=== PATIENT | male | born 1965 | race Two or more races ===

== ENCOUNTER 2025-01-01 15:42 | Inpatient (IN) | payer OTHER ==
[~2025-01-01] VITALS: Ht 172.7 cm; Wt 74.8 kg
[2025-01-01] MEDS ORDERED: FAMOTIDINE 20 MG/2 ML VIAL IV ONE (16:03)
[2025-01-01] MEDS: ONDANSETRON HCL INJ 2MG/ML 2ML 2 MG/ML VIAL IV ONE (16:12)
[2025-01-01] MEDS: LACTATED RINGER'S 1,000 ML INJ ONE (16:12)
[2025-01-01] MEDS: FAMOTIDINE 20 MG/2 ML VIAL IV ONE (16:12)
[2025-01-01] MEDS ORDERED: DIPHENHYDRAMINE HCL INJ 50 MG/ML VIAL IV PRN (17:30)
[2025-01-01 18:40] VITALS: PULSE 84; RESP 18; TEMP 97.5
[2025-01-01] MEDS ORDERED: ACETAMINOPHEN 1000 MG/100 ML IV PRN (19:15)
[2025-01-01] MEDS: SODIUM CHLORIDE 0.9% 1000ML 1,000 ML IV STA (19:47)
[2025-01-01 20:00] VITALS: BP 127/90; PULSE 79; RESP 16; TEMP 97.5; O2SAT 92
[2025-01-01] MEDS: SODIUM CHLORIDE 0.9% 1000ML 1,000 ML IV SCH (20:45)
[2025-01-01 22:32] VITALS: BP 127/90; PULSE 79; RESP 16; TEMP 97.5; O2SAT 92
[2025-01-01 22:35] VITALS: BP 127/90; PULSE 79; RESP 16; TEMP 97.5; O2SAT 92
[2025-01-01] MEDS: Morphine 4mg INJECTION 4 MG/ML INJ IV PRN (23:08)
[2025-01-01] MEDS: ONDANSETRON HCL INJ 2MG/ML 2ML 2 MG/ML VIAL IV PRN (23:08)
[2025-01-02] VITALS (8 sets, daily range): BP systolic 128–140; BP diastolic 81–99; PULSE 61–70; RESP 18–20; TEMP 97–98.4; O2SAT 98–100
[2025-01-02 05:54] LABS: BASOPHILS % 0.4 % (0.0-1.0); EOSINOPHILS % 0.5 % (0.0-6.0); LYMPHOCYTES % 7.0 % (18.0-39.1); MONOCYTES % 13.7 % (4.4-11.3); NEUTROPHILS % 77.7 % (38.7-80.0); RED CELL DISTRIBUTION WIDTH 11.5 % (11.7-14.4)
[2025-01-02 06:43] LABS: EST GLOMERULAR FILTRATION RATE 33.0 ML/MIN (>=60)
[2025-01-02] MEDS ORDERED: FAMOTIDINE 20 MG/2 ML VIAL IV SCH (09:00)
[2025-01-02] MEDS: POTASSIUM CHLORIDE 20MEQ/100ML 100 ML IV ONE (10:00)
[2025-01-02 18:58] LABS: LEUKOCYTE ESTERASE ,URINE NEGATIVE (NEGATIVE); PROTEIN,URINE DIPSTICK NEGATIVE (NEGATIVE); URINE UROBILINOGEN 2.0 mg/dL (0.2 - 1)
[2025-01-02 19:00] LABS: EPITHELIAL CELLS,URINE FEW /LPF; WBC,URINE (MAN) 0-5 /HPF (0-5)
[2025-01-03] VITALS: BP 124/76; PULSE 66; RESP 20; TEMP 97.5; O2SAT 94
[2025-01-03 06:27] LABS: BASOPHILS % 0.3 % (0.0-1.0); EOSINOPHILS % 0.6 % (0.0-6.0); LYMPHOCYTES % 6.7 % (18.0-39.1); MONOCYTES % 11.9 % (4.4-11.3); NEUTROPHILS % 80.0 % (38.7-80.0); RED CELL DISTRIBUTION WIDTH 11.7 % (11.7-14.4)
[2025-01-03 06:28] VITALS: BP 140/86; PULSE 66; RESP 18; TEMP 97.7; O2SAT 100
[2025-01-03 06:55] LABS: EST GLOMERULAR FILTRATION RATE 56.0 ML/MIN (>=60); PHOSPHORUS 1.5 MG/DL (2.3-4.7)
[2025-01-03 08:20] VITALS: BP 134/68; PULSE 62; RESP 20; TEMP 97.9; O2SAT 97
[2025-01-03] MEDS ORDERED: ROCURONIUM BROMIDE 1 ML IV ONE ×2 (09:34→12:39)
[2025-01-03] MEDS ORDERED: SEVOFLURANE INHAL SOLN 250 ML PEN BTL ONE ×2 (09:34→12:39)
[2025-01-03] MEDS ORDERED: FENTANYL CITRATE/PF 100MCG/2 ML INJ ONE ×3 (10:54→14:41)
[2025-01-03 12:24] VITALS: BP 141/88; PULSE 66; RESP 17; TEMP 98.6; O2SAT 99
[2025-01-03] MEDS ORDERED: SUGAMMADEX SODIUM 200 MG/2 ML VIAL IV ONE (12:39)
[2025-01-03] MEDS ORDERED: SUCCINYLCHOLINE CHLORIDE 20 MG/ML 10ML VIAL ONE (12:39)
[2025-01-03] MEDS ORDERED: ACETAMINOPHEN 1000 MG/100 ML 100 ML IV ONE (12:39)
[2025-01-03] MEDS ORDERED: PROPOFOL IV EMULSION 10 MG/ML 20 ML VIAL ONE ×2 (12:39→13:45)
[2025-01-03] MEDS ORDERED: LIDOCAINE HCL 2% LOCAL INJ 5 ML SDV VIAL INJ ONE (12:40)
[2025-01-03] MEDS ORDERED: DEXAMETHASONE SOD PHOS INJ 4 MG/ML SDV ONE (12:40)
[2025-01-03] MEDS ORDERED: ONDANSETRON HCL INJ 2MG/ML 2ML 2 MG/ML VIAL ONE (12:40)
[2025-01-03] MEDS: FENTANYL CITRATE/PF 100MCG/2 ML INJ ONE (15:40)
[2025-01-03] MEDS ORDERED: SODIUM PHOSPHATE IN 0.9 % NACL 15 MMOL in SODIUM CHLORIDE 0.9% 250ML 250 ML IV ONE (17:15)
[2025-01-03] MEDS: SODIUM PHOSPHATE IN 0.9 % NACL 15 MMOL in SODIUM CHLORIDE 0.9% 250ML 250 ML IV ONE (18:29)
[2025-01-03 20:00] VITALS: BP 138/86; PULSE 60; RESP 18; TEMP 97.5; O2SAT 100
[2025-01-03 21:00] VITALS: BP 138/86; PULSE 60; RESP 18; TEMP 97.5; O2SAT 100
[2025-01-04] VITALS (7 sets, daily range): BP systolic 105–142; BP diastolic 73–93; PULSE 56–76; RESP 18–20; TEMP 97.5–98.3; O2SAT 95–100
[2025-01-04 08:15] LABS: EST GLOMERULAR FILTRATION RATE 100.0 ML/MIN (>=60)
[2025-01-04] MEDS ORDERED: SODIUM PHOSPHATE IN 0.9 % NACL 15 MMOL in SODIUM CHLORIDE 0.9% 250ML 250 ML IV ONE (16:00)
[2025-01-04] MEDS: LACTATED RINGER'S 1,000 ML INJ SCH (16:59)
[2025-01-04] MEDS: SODIUM CHLORIDE 0.9% IV ONE (17:22)
[2025-01-04] MEDS: SODIUM PHOSPHATE IV ONE (17:22)
[2025-01-05] VITALS (10 sets, daily range): BP systolic 116–159; BP diastolic 74–90; PULSE 55–101; RESP 17–20; TEMP 97.2–99; O2SAT 96–100
[2025-01-05 07:41] LABS: EST GLOMERULAR FILTRATION RATE 101.0 ML/MIN (>=60); PHOSPHORUS 2.0 MG/DL (2.3-4.7)
[2025-01-05] MEDS ORDERED: SODIUM PHOSPHATE IN 0.9 % NACL 15 MMOL in SODIUM CHLORIDE 0.9% 250ML 250 ML IV ONE (13:15)
[2025-01-05] MEDS: SODIUM PHOSPHATE IN 0.9 % NACL 15 MMOL in SODIUM CHLORIDE 0.9% 250ML 250 ML IV ONE (14:29)
[2025-01-06 03:09] VITALS: BP 145/86; PULSE 66; RESP 18; TEMP 97.8; O2SAT 97
[2025-01-06 05:37] LABS: BASOPHILS % 0.4 % (0.0-1.0); EOSINOPHILS % 1.4 % (0.0-6.0); LYMPHOCYTES % 11.1 % (18.0-39.1); MONOCYTES % 8.0 % (4.4-11.3); NEUTROPHILS % 78.3 % (38.7-80.0); RED CELL DISTRIBUTION WIDTH 11.9 % (11.7-14.4)
[2025-01-06 06:00] LABS: EST GLOMERULAR FILTRATION RATE 103.0 ML/MIN (>=60)
[2025-01-06 07:48] VITALS: BP 142/92; PULSE 61; RESP 20; TEMP 98.5; O2SAT 96
[2025-01-06 09:18] VITALS: BP 142/92; PULSE 61; RESP 20; TEMP 98.5; O2SAT 96
[2025-01-06 11:39] VITALS: BP 128/80; PULSE 64; RESP 18; TEMP 97.2; O2SAT 97
== END 2025-01-06 15:00 | disposition home or self-care (01) | DRG 418 ==
LOC: FSED 15:48 → ERHOLD 17:24 → MED/SURG3 19:19
PROVIDERS: ADMIT Internal Medicine; ATTEND Internal Medicine
PROC: 0FT44ZZ Resection of Gallbladder, Percutaneous Endoscopic Approach (ICD-10-PCS; principal; 2025-01-03 13:11)
DX: K80.12 Calculus of gallbladder with acute and chronic cholecystitis without obstruction (principal); E87.1 Hypo-osmolality and hyponatremia; N17.9 Acute kidney failure, unspecified; E87.20 Acidosis, unspecified; E86.0 Dehydration; K59.00 Constipation, unspecified; E87.8 Other disorders of electrolyte and fluid balance, not elsewhere classified; E87.6 Hypokalemia; R79.89 Other specified abnormal findings of blood chemistry; E83.39 Other disorders of phosphorus metabolism; K82.A1 Gangrene of gallbladder in cholecystitis
CPT/HCPCS: 36415; 74176; 76770; 80048; 80053; 80076; 81001; 81003; 83735; 84100; 85025; 88304; 96374; 96375; 99284; J0330; J1100; J1308; J2003; J2270; J2405; J2470; J2543; J3480; J7030; J7040; J7050